=== PATIENT | male | born 1995 ===

== ENCOUNTER → 2017-07-12 | Outpatient (CLI) | payer OTHER ==
--- NOTE | 2017-07-12 15:36 | RADIOLOGY IMAGING REPORT ---
FACILITY: [facility] [place] PATIENT NAME: Kalpana Saeed : 1995 MR: [id number] V: [id number] EXAM DATE: ORDERING PHYSICIAN: KIRSS GARVEY TECHNOLOGIST: [place] [facility] [place] Kalpana Saeed : 1995 Visit/Account:[id number] Date of Sevice: 07/12/2017 Exam type: CHEST PA AND LAT History: Positive QFT Comparison: None. Findings: The lungs are free of acute effusions, infiltrates or edema. No cavitary lesions are seen. The card iac silhouette is normal in size. The trachea is in midline. IMPRESSION: 1. No acute cardiopulmonary process is seen. Specifically no chest radiographic evidence of active tuberculosis Report Dictated By: Ct Guo MD at 07/12/2017 3:32 PM Report E-Signed By: Ct Guo MD at 07/12/2017 3:33 PM WSN:[id number]
== END ==
LOC: RAD 15:00
PROVIDERS: ATTEND Pediatrics Adolescent Medicine
DX: R76.11 Nonspecific reaction to tuberculin skin test without active tuberculosis (principal)
CPT/HCPCS: 71046